=== PATIENT | male | born 1985 | race Caucasian/White ===

== ENCOUNTER 2025-05-27 09:56 | Emergency (ER) | payer OTHER ==
[~2025-05-27] VITALS: Ht 180.3 cm; Wt 88.0 kg
[2025-05-27 10:21] VITALS: BP 114/83; TEMP 37.2; O2SAT 99
[2025-05-27 10:25] VITALS: PULSE 90; RESP 16; O2SAT 94
[2025-05-27] MEDS ORDERED: IBUP-2028 MT (11:12)
== END 2025-05-27 11:24 | disposition home or self-care (01) ==
LOC: ER 09:56
DX: M25.561 Pain in right knee (principal)
CPT/HCPCS: 73560; 99283